=== PATIENT | female | born 1925 | race Caucasian/White ===

== ENCOUNTER 2016-11-08 12:07 | Emergency (ER) | payer OTHER ==
[~2016-11-08] VITALS: Ht 160 cm; Wt 53.6 kg
[~2016-11-08 12:07] MED LIST: ADVAIR; ADVAIR 250-501 EACH IH; ADVAIR 250/501 DISK IH; ADVAIR HFA120 INHALA IH; ASPIR 8181 M1 PO; CAL-CITRATE PL1 EACH PO; CALCIUM CARB1 TABLET PO; CARDIZEM CD,CA180 MG PO; CARDIZEM CD120 MG PO; CEFTIN500 MG PO; CLINDAMYCIN HC150 MG PO; CRESTOR20 MG; CRESTOR20 MG PO; Cardizem CD,Cartia X PO; Ceftin PO; DELTASONE5 MG PO; DIGOXIN125 MCG PO; DILTIAZEM 24HR180 MG PO; DILTIAZEM 24HR240 MG PO; FERROUS SULFAT325 MG PO; FUROSEMIDE20 MG PO; IRON325 MG PO; K-DUR20 MEQ PO; KLOR-CON M2020 MEQ PO; LEVAQUIN500 MG PO; LEVOFLOXACIN750 MG PO; LEVOTHROID,SYN0.1 MG PO; LEVOTHYROXINE75 MCG PO; LIDOCAINE700 MG TD; LOPRESSOR50 MG PO; LYRICA75 MG PO; Levothroid,Synthroid PO; MEDROL DOSEPAK4 MG PO; MOUTHWASH PO; Medrol Dosepak PO; NYSTATIN100000 UN1 PO; OMEPRAZOLE40 M1 PO; PRADAXA150 MG PO; PRADAXA75 MG; PRADAXA75 MG PO; PREDNISOLONE5 MG PO; PREDNISONE PO; PREDNISONE1 MG PO; PREDNISONE10 MG PO; PREDNISONE20 MG PO; PREDNISONE5 M2 PO; PREDNISONE5 MG PO; PRILOSEC40 MG PO; PROAIR HFA8.5 GM; PROAIR HFA8.5 GM IH; PROVENTIL,2.5 MG/0.5 IH; Pradaxa PO; PriLOSEC PO; RANITIDINE HCL150 M1 PO; RAYOS2 MG PO; RECLAST 55 MG/100 M IV; RECLAST5 MG/100 M IV; SENNA-TIME S T1 EACH PO; SERTRALINE HCL100 MG; SERTRALINE HCL100 MG PO; SPIRIVA1 INHALATI IH; SYNTHROID100 MCG PO; SYNTHROID75 MCG PO; TYLENOL/CODE1 TABLE1; VALACYCLOVIR1000 MG PO; VENTOLIN HFA18 GM IH; ZANTAC150 MG PO; ZETIA10 MG; ZETIA10 MG PO; ZOFRAN4 MG PO; ZOLOFT100 M1 PO; ZYRTEC10 M2 PO; ZYRTEC10 M3 PO; Zithromax PO; Zoloft PO; ZyrTEC PO; [UNRECOGNIZED DRUG - OTHER] PO; predniSONE PO
[2016-11-08 13:14] LABS: HEMATOCRIT 35.3 % (36.0-46.0); MCH 29.9 PG (29.0-34.0); MCHC 30.9 G/DL (30.0-36.0); MCV 96.7 FL (83-99); MEAN PLAT.VOLUME 10.4 uM^3 (9.5-12.4); PLATELET COUNT 161 K/uL (156-360); RBC DIS.WIDTH-CV 15.1 % (11.8-14.6); RBC DIS.WIDTH-SD 53.5 % (39-53); RED BLOOD COUNT 3.65 M/uL (3.80-5.20); WHITE BLOOD COUNT 8.9 K/uL (4.1-10.2)
[2016-11-08 13:22] LABS: CHLORIDE 109 mEq/L (99-109); POTASSIUM 3.9 mEq/L (3.7-5.4); SODIUM 141 mEq/L (136-147)
[2016-11-08 13:24] LABS: GLUCOSE 99 mg/dL (70-99); INTER. NORMALIZED RATIO 1.1; PROTHROMBIN TIME 11.7 (9.2-11.2); PTT 34.5 (25-32)
[2016-11-08 13:25] LABS: ANION GAP 9 MEQ/L (2-14)
[2016-11-08 13:28] LABS: GFR ESTIMATE (CALCULATED) 45 mL/min/
[2016-11-08 13:29] LABS: UREA NITROGEN (BUN) 29 mg/dL (9-23)
[2016-11-08 16:41] VITALS: BP 138/53
== END 2016-11-08 16:42 | disposition home or self-care (01) ==
LOC: EME 12:07
PROVIDERS: Emergency Medicine
PROC: 0HQEXZZ Repair Left Lower Arm Skin, External Approach (ICD-10-PCS; principal; 2016-11-08)
DX: S51.812A Laceration without foreign body of left forearm, initial encounter (principal); W18.30XA Fall on same level, unspecified, initial encounter; K21.9 Gastro-esophageal reflux disease without esophagitis; J44.9 Chronic obstructive pulmonary disease, unspecified; Z86.73 Personal history of transient ischemic attack (TIA), and cerebral infarction without residual deficits; Z87.891 Personal history of nicotine dependence
CPT/HCPCS: 70450; 73090; 73110; 80048; 85027; 85610; 85730; 93005; 99281; 99285

== ENCOUNTER 2016-11-26 04:52 | Emergency (ER) | payer OTHER ==
[~2016-11-26] VITALS: Ht 157.5 cm; Wt 46.7 kg
[2016-11-26 05:27] LABS: CHLORIDE 106 mEq/L (99-109); POTASSIUM 4.8 mEq/L (3.7-5.4); SODIUM 139 mEq/L (136-147)
[2016-11-26 05:29] LABS: GLUCOSE 109 mg/dL (70-99)
[2016-11-26 05:30] LABS: ANION GAP 10 MEQ/L (2-14)
[2016-11-26 05:32] LABS: GFR ESTIMATE (CALCULATED) 41 mL/min/; SERUM ETHYL ALCOHOL < 10 mg/dL
[2016-11-26 05:33] LABS: UREA NITROGEN (BUN) 34 mg/dL (9-23)
[2016-11-26 05:35] LABS: LIPASE 47 U/L (1.0-51.0)
[2016-11-26 05:36] LABS: BASOPHIL COUNT 0.1 K/uL (0-0.1); EOSINOPHIL (%) 2.6 % (0-5); EOSINOPHIL COUNT 0.2 K/uL (0-0.3); HEMATOCRIT 35.2 % (36.0-46.0); IMMATURE GRANULOCYTE (%) 0.7 % (0.0-0.7); IMMATURE GRANULOCYTE COUNT 0.1 K/uL; INSTRUMENT ABS NEUTROPHIL CT 6.9 K/uL; LYMPHOCYTE COUNT 0.6 K/uL (1.0-2.8); MCH 29.8 PG (29.0-34.0); MCV 96.2 FL (83-99); MEAN PLAT.VOLUME 10.1 uM^3 (9.5-12.4); MONOCYTE COUNT 0.7 K/uL (0-0.8); NEUTROPHIL (%) 81.5 % (45-76); NEUTROPHIL COUNT 6.9 K/uL (1.8-6.4); PLATELET COUNT 176 K/uL (156-360); RBC DIS.WIDTH-CV 15.1 % (11.8-14.6); RBC DIS.WIDTH-SD 53.3 % (39-53); RED BLOOD COUNT 3.66 M/uL (3.80-5.20); WHITE BLOOD COUNT 8.5 K/uL (4.1-10.2)
[2016-11-26 05:41] LABS: DIGOXIN 0.7 ng/mL (0.8-2.0)
[2016-11-26] MEDS ORDERED: PERCOCET 5/31 TABLET PO (05:59)
[2016-11-26 06:30] VITALS: BP 145/82
== END 2016-11-26 06:30 | disposition home or self-care (01) ==
LOC: EME → EDBD 04:52 → EME 04:52
PROVIDERS: Emergency Medicine
DX: S70.01XA Contusion of right hip, initial encounter (principal); W01.0XXA Fall on same level from slipping, tripping and stumbling without subsequent striking against object, initial encounter; I10 Essential (primary) hypertension; M54.5 Low back pain; J44.9 Chronic obstructive pulmonary disease, unspecified; J45.909 Unspecified asthma, uncomplicated; Z79.52 Long term (current) use of systemic steroids; Z79.82 Long term (current) use of aspirin; Z87.891 Personal history of nicotine dependence
CPT/HCPCS: 70450; 72110; 72220; 73502; 80048; 80162; 81003; 83690; 85025; 86900; 86901; 99281; 99284; G0480

== ENCOUNTER 2017-06-26 14:42 | Inpatient (IN) | payer OTHER ==
[~2017-06-26] VITALS: Ht 160 cm; Wt 103.1 kg
[~2017-06-26 14:42] MED LIST changes: +PERCOCET 5/31 TABLET PO
[2017-06-26 15:32] LABS: HEMATOCRIT 31.4 % (36.0-46.0); HEMOGLOBIN 10.1 G/DL (11.9-15.5); MCH 30.4 PG (29.0-34.0); MCHC 32.2 G/DL (30.0-36.0); MCV 94.6 FL (83-99); PLATELET COUNT 134 K/uL (156-360); RBC DIS.WIDTH-CV 13.4 % (11.8-14.6); RBC DIS.WIDTH-SD 46.8 % (39-53); RED BLOOD COUNT 3.32 M/uL (3.80-5.20); WHITE BLOOD COUNT 21.6 K/uL (4.1-10.2)
[2017-06-26 15:41] LABS: ALBUMIN 3.1 g/dL (3.2-4.8); CHLORIDE 100 mEq/L (99-109); POTASSIUM 3.8 mEq/L (3.7-5.4); SODIUM 132 mEq/L (136-147)
[2017-06-26 15:43] LABS: MAGNESIUM 1.2 mg/dL (1.3-2.7)
[2017-06-26 15:44] LABS: GLUCOSE 149 mg/dL (70-99); TOTAL PROTEIN 6.5 g/dL (6.4-8.3)
[2017-06-26 15:46] LABS: TOTAL BILIRUBIN 0.9 mg/dL (0.0-1.0)
[2017-06-26 15:47] LABS: ALKALINE PHOSPHATASE 57 IU/L (3-129)
[2017-06-26 15:48] LABS: CREATININE 1.8 mg/dL (0.6-1.3); GFR ESTIMATE (CALCULATED) 28 mL/min/
[2017-06-26 15:49] LABS: AST (GOT) 25 IU/L (2-34); UREA NITROGEN (BUN) 38 mg/dL (9-23)
[2017-06-26 15:50] LABS: ALT (GPT) 11 IU/L (3-49)
[2017-06-26 15:54] LABS: TROP-I INTERPRETATION POSITIVE
[2017-06-26 15:58] LABS: TROPONIN-I 0.77 ng/mL (0.0-0.30)
[2017-06-26 16:14] LABS: APPEARANCE SL.HAZY ((CLEAR)); BILIRUBIN NEGATIVE; BLOOD MODERATE; COLOR YELLOW ((YELLOW)); GLUCOSE (STRIP) NEGATIVE; KETONES NEGATIVE; LEUKOCYTES NEGATIVE; NITRITE NEGATIVE; PROTEIN (STRIP) 30; SPECIFIC GRAVITY 1.013 (1.000-1.030)
[2017-06-26 16:21] LABS: BACTERIA RARE /HPF; EPITHELIAL CELLS RARE /HPF; HYALINE CASTS 0-5 /LPF; MUCUS NONE SEEN /LPF; RED BLOOD CELLS 0-5 /HPF (0-5); UCUL ADDED? NO; WHITE BLOOD CELLS 0-5 /HPF (0-5)
[2017-06-26] MEDS ORDERED: ERGOCALCIF50000 UNIT PO (16:51)
[2017-06-26] MEDS ORDERED: DIGOXIN125 MCG PO (16:52)
[2017-06-26] MEDS ORDERED: OMEPRAZOLE40 M1 PO (16:52)
[2017-06-26 17:00] LABS: ABS NEUTROPHIL COUNT 21.1; ANISOCYTOSIS 1+; ATYPICAL LYMPHOCYTE 0.4 %; BAND NEUTROPHILS 17.3 % (0-8.0); EOSINOPHIL ABS CT 0; HEMATOLOGY COMMENT 1 SN; MONOCYTES 1.7 % (0-9.0); OVALOCYTES 1+; PLAT.SUFFICIENCY DECREASED; POIKILOCYTOSIS 1+; POLYCHROMASIA 1+; SEG.NEUTROPHILS 80.6 % (46.0-76.0); TOXIC GRANULATION 1+
[2017-06-26 17:15] LABS: THYROTROPIN (TSH) 1.6 MIU/L (0.4-5.5)
[2017-06-26 17:17] LABS: C DIFF TOXIN NEGATIVE (NEGATIVE)
[2017-06-26 21:30] VITALS: BP 99/51
[2017-06-26 23:44] VITALS: BP 99/50
[2017-06-27 02:06] LABS: HEMATOCRIT 27.2 % (36.0-46.0); HEMOGLOBIN 8.8 G/DL (11.9-15.5); MCH 30.7 PG (29.0-34.0); MCHC 32.4 G/DL (30.0-36.0); MCV 94.8 FL (83-99); PLATELET COUNT 112 K/uL (156-360); RBC DIS.WIDTH-CV 13.7 % (11.8-14.6); RBC DIS.WIDTH-SD 47.6 % (39-53); RED BLOOD COUNT 2.87 M/uL (3.80-5.20); WHITE BLOOD COUNT 19.2 K/uL (4.1-10.2)
[2017-06-27 02:12] LABS: CHLORIDE 106 mEq/L (99-109); POTASSIUM 3.8 mEq/L (3.7-5.4); SODIUM 136 mEq/L (136-147)
[2017-06-27 02:15] LABS: ALBUMIN 2.6 g/dL (3.2-4.8)
[2017-06-27 02:18] LABS: GLUCOSE 125 mg/dL (70-99); TOTAL PROTEIN 4.9 g/dL (6.4-8.3)
[2017-06-27 02:21] LABS: ALKALINE PHOSPHATASE 60 IU/L (3-129); CREATININE 1.7 mg/dL (0.6-1.3); GFR ESTIMATE (CALCULATED) 30 mL/min/
[2017-06-27 02:22] LABS: UREA NITROGEN (BUN) 40 mg/dL (9-23)
[2017-06-27 02:24] LABS: ALT (GPT) 16 IU/L (3-49)
[2017-06-27 02:25] LABS: AST (GOT) 39 IU/L (2-34); TOTAL BILIRUBIN 0.7 mg/dL (0.0-1.0)
[2017-06-27 02:44] LABS: TROP-I INTERPRETATION POSITIVE
[2017-06-27 02:48] LABS: TROPONIN-I 0.97 ng/mL (0.0-0.30)
[2017-06-27 04:59] VITALS: BP 96/54
[2017-06-27 07:30] VITALS: BP 104/56
[2017-06-27 11:46] VITALS: BP 91/52
[2017-06-27 15:55] VITALS: BP 114/53
[2017-06-27 20:08] VITALS: BP 121/58
[2017-06-28] VITALS (7 sets, daily range): BP systolic 120–159; BP diastolic 62–77
[2017-06-28 05:47] LABS: HEMATOCRIT 27.3 % (36.0-46.0); HEMOGLOBIN 8.6 G/DL (11.9-15.5); MCH 29.5 PG (29.0-34.0); MCHC 31.5 G/DL (30.0-36.0); MCV 93.5 FL (83-99); PLATELET COUNT 124 K/uL (156-360); RBC DIS.WIDTH-CV 13.5 % (11.8-14.6); RBC DIS.WIDTH-SD 46.5 % (39-53); RED BLOOD COUNT 2.92 M/uL (3.80-5.20); WHITE BLOOD COUNT 8.6 K/uL (4.1-10.2)
[2017-06-28 06:13] LABS: ALBUMIN 2.9 G/DL (3.2-4.8); ALKALINE PHOSPHATASE 67 IU/L (3-129); ALT (GPT) 13 IU/L (3-49); AST (GOT) 20 IU/L (2-34); CHLORIDE 109 MEQ/L (99-109); CREATININE 1.6 MG/DL (0.6-1.3); GFR ESTIMATE (CALCULATED) 32 mL/min/; GLUCOSE 143 mg/dL (70-99); POTASSIUM 3.8 MEQ/L (3.7-5.4); SODIUM 137 MEQ/L (136-147); TOTAL BILIRUBIN 0.4 MG/DL (0.0-1.0); UREA NITROGEN (BUN) 46 mg/dL (9-23)
[2017-06-29 04:45] VITALS: BP 140/68
[2017-06-29 04:56] LABS: HEMATOCRIT 27.8 % (36.0-46.0); HEMOGLOBIN 9.1 G/DL (11.9-15.5); MCH 30.6 PG (29.0-34.0); MCHC 32.7 G/DL (30.0-36.0); MCV 93.6 FL (83-99); PLATELET COUNT 133 K/uL (156-360); RBC DIS.WIDTH-SD 48.2 % (39-53); RED BLOOD COUNT 2.97 M/uL (3.80-5.20); WHITE BLOOD COUNT 7.4 K/uL (4.1-10.2)
[2017-06-29 07:37] VITALS: BP 157/68
[2017-06-29 11:18] LABS: CHLORIDE 107 MEQ/L (99-109); CREATININE 1.7 MG/DL (0.6-1.3); GFR ESTIMATE (CALCULATED) 30 mL/min/; GLUCOSE 153 mg/dL (70-99); POTASSIUM 3.9 MEQ/L (3.7-5.4); SODIUM 137 MEQ/L (136-147); UREA NITROGEN (BUN) 51 mg/dL (9-23)
[2017-06-29 12:08] VITALS: BP 154/66
[2017-06-29 19:16] VITALS: BP 159/79
[2017-06-29 22:28] VITALS: BP 143/77
[2017-06-30 04:21] VITALS: BP 154/82
[2017-06-30 08:00] VITALS: BP 143/72
[2017-06-30 11:23] VITALS: BP 147/81
[2017-06-30] MEDS ORDERED: CEFTIN250 MG PO (12:27)
[2017-06-30] MEDS ORDERED: PREDNISONE10 MG PO (12:28)
[2017-06-30] MEDS ORDERED: LOPRESSOR25 MG PO (12:28)
[2017-06-30 15:31] VITALS: BP 122/81
[2017-06-30 20:41] VITALS: BP 143/74
[2017-06-30 23:55] VITALS: BP 142/72
[2017-07-01 03:39] VITALS: BP 150/67
[2017-07-01 09:25] VITALS: BP 142/59
== END 2017-07-01 13:23 | DRG 871 ==
LOC: EME 14:42 → EDOF 16:51 → 4EAST 16:51 → ENRESERV 16:52 → CANRESERV 17:19 → ENRESERV 18:05 → 4EAST 21:11
PROVIDERS: Emergency Medicine; Hospitalist; Physician Assistant
DX: A41.9 Sepsis, unspecified organism (principal); R65.21 Severe sepsis with septic shock; J18.9 Pneumonia, unspecified organism; J44.0 Chronic obstructive pulmonary disease with (acute) lower respiratory infection; N17.9 Acute kidney failure, unspecified; J44.1 Chronic obstructive pulmonary disease with (acute) exacerbation; I13.0 Hypertensive heart and chronic kidney disease with heart failure and stage 1 through stage 4 chronic kidney disease, or unspecified chronic kidney disease; I50.9 Heart failure, unspecified; N18.9 Chronic kidney disease, unspecified; I08.1 Rheumatic disorders of both mitral and tricuspid valves; S22.42XA Multiple fractures of ribs, left side, initial encounter for closed fracture; W19.XXXA Unspecified fall, initial encounter; Y92.009 Unspecified place in unspecified non-institutional (private) residence as the place of occurrence of the external cause; Z60.2 Problems related to living alone; I27.20 Pulmonary hypertension, unspecified; I24.8 Other forms of acute ischemic heart disease; I48.2 Chronic atrial fibrillation; Z66 Do not resuscitate; R19.7 Diarrhea, unspecified; E78.5 Hyperlipidemia, unspecified; E03.9 Hypothyroidism, unspecified; M35.3 Polymyalgia rheumatica; K21.9 Gastro-esophageal reflux disease without esophagitis; D64.9 Anemia, unspecified; M19.90 Unspecified osteoarthritis, unspecified site; Z86.73 Personal history of transient ischemic attack (TIA), and cerebral infarction without residual deficits; Z87.891 Personal history of nicotine dependence; Z91.81 History of falling; Z79.52 Long term (current) use of systemic steroids; Z79.82 Long term (current) use of aspirin; Z90.710 Acquired absence of both cervix and uterus; Z82.49 Family history of ischemic heart disease and other diseases of the circulatory system; Z80.9 Family history of malignant neoplasm, unspecified
CPT/HCPCS: 71010; 80048; 80053; 81003; 83605; 83630; 83735; 83880; 84443; 84484; 85025; 85027; 87040; 87493; 87502; 87506; 87641; 93005; 94640; 94640 76; 97530 GO; 97530 GP; 99281; 99285; J0456; J0696; J1644; J2405; J2930; J7030; J7512

== ENCOUNTER 2017-08-24 21:22 | Emergency (ER) | payer OTHER ==
[~2017-08-24] VITALS: Ht 152.4 cm; Wt 46.4 kg
[~2017-08-24 21:22] MED LIST changes: +CEFTIN250 MG PO; +ERGOCALCIF50000 UNIT PO; +LOPRESSOR25 MG PO
[2017-08-24 22:09] LABS: BASOPHIL (%) 0.3 % (0-1); EOSINOPHIL (%) 2.1 % (0-5); EOSINOPHIL COUNT 0.2 K/uL (0-0.3); HEMATOCRIT 34.7 % (36.0-46.0); HEMOGLOBIN 11.3 G/DL (11.9-15.5); IMMATURE GRANULOCYTE (%) 0.4 % (0.0-0.7); LYMPHOCYTE (%) 9.7 % (15-42); LYMPHOCYTE COUNT 0.8 K/uL (1.0-2.8); MCH 29.6 PG (29.0-34.0); MCHC 32.6 G/DL (30.0-36.0); MCV 90.8 FL (83-99); MONOCYTE (%) 8.5 % (3-12); MONOCYTE COUNT 0.7 K/uL (0-0.8); NEUTROPHIL COUNT 6.2 K/uL (1.8-6.4); PLATELET COUNT 130 K/uL (156-360); RBC DIS.WIDTH-CV 14.4 % (11.8-14.6); RBC DIS.WIDTH-SD 47.9 % (39-53); RED BLOOD COUNT 3.82 M/uL (3.80-5.20); WHITE BLOOD COUNT 7.8 K/uL (4.1-10.2)
[2017-08-24 22:27] LABS: CHLORIDE 105 mEq/L (99-109); POTASSIUM 3.5 mEq/L (3.7-5.4); SODIUM 136 mEq/L (136-147)
[2017-08-24 22:29] LABS: GLUCOSE 104 mg/dL (70-99)
[2017-08-24 22:32] LABS: CREATININE 1.7 mg/dL (0.6-1.3); GFR ESTIMATE (CALCULATED) 30 mL/min/
[2017-08-24 22:33] LABS: UREA NITROGEN (BUN) 32 mg/dL (9-23)
[2017-08-25] MEDS ORDERED: LEVAQUIN750 MG PO (00:07)
[2017-08-25 00:28] VITALS: BP 133/64
== END 2017-08-25 00:29 | disposition home or self-care (01) ==
LOC: EME 21:22
DX: J44.1 Chronic obstructive pulmonary disease with (acute) exacerbation (principal); K21.9 Gastro-esophageal reflux disease without esophagitis; I10 Essential (primary) hypertension; F41.9 Anxiety disorder, unspecified; F32.9 Major depressive disorder, single episode, unspecified; Z87.891 Personal history of nicotine dependence; Z86.73 Personal history of transient ischemic attack (TIA), and cerebral infarction without residual deficits; Z79.82 Long term (current) use of aspirin; Z88.0 Allergy status to penicillin; Z88.8 Allergy status to other drugs, medicaments and biological substances
CPT/HCPCS: 71046; 80048; 85025; 85610; 85730; 99281; 99284; J1100

== ENCOUNTER 2017-09-03 19:16 | Inpatient (IN) | payer OTHER ==
[~2017-09-03] VITALS: Ht 157.5 cm; Wt 45.5 kg
[~2017-09-03 19:16] MED LIST changes: +LEVAQUIN750 MG PO
[2017-09-03 20:02] LABS: HEMOGLOBIN 11.6 G/DL (11.9-15.5); MCH 30.3 PG (29.0-34.0); MCHC 33.1 G/DL (30.0-36.0); MCV 91.4 FL (83-99); PLATELET COUNT 151 K/uL (156-360); RBC DIS.WIDTH-CV 14.4 % (11.8-14.6); RBC DIS.WIDTH-SD 48.4 % (39-53); RED BLOOD COUNT 3.83 M/uL (3.80-5.20); WHITE BLOOD COUNT 14.3 K/uL (4.1-10.2)
[2017-09-03 20:12] LABS: CHLORIDE 106 mEq/L (99-109); POTASSIUM 3.8 mEq/L (3.7-5.4); SODIUM 138 mEq/L (136-147)
[2017-09-03 20:13] LABS: GLUCOSE 141 mg/dL (70-99)
[2017-09-03 20:17] LABS: CREATININE 1.8 mg/dL (0.6-1.3); GFR ESTIMATE (CALCULATED) 28 mL/min/
[2017-09-03 20:18] LABS: UREA NITROGEN (BUN) 32 mg/dL (9-23)
[2017-09-03] MEDS ORDERED: DIGITEK125 MC2 PO (21:21)
[2017-09-03] MEDS ORDERED: LASIX20 MG PO (21:23)
[2017-09-03] MEDS ORDERED: PROLIA60 MG/1 ML SC (21:25)
[2017-09-03 21:48] LABS: APPEARANCE SL.HAZY ((CLEAR)); BILIRUBIN NEGATIVE; BLOOD NEGATIVE; COLOR YELLOW ((YELLOW)); GLUCOSE (STRIP) NEGATIVE; KETONES NEGATIVE; LEUKOCYTES MODERATE; NITRITE NEGATIVE; PROTEIN (STRIP) 30; SPECIFIC GRAVITY 1.017 (1.000-1.030); UROBILINOGEN 0.2 MG/DL (0.2-1.0)
[2017-09-03 21:51] LABS: BACTERIA RARE /HPF; EPITHELIAL CELLS 2+ /HPF; MUCUS TRACE /LPF; UCUL ADDED? YES; WHITE BLOOD CELLS 20-30 /HPF (0-5)
[2017-09-03] MEDS ORDERED: ZOLOFT50 MG PO (22:53)
[2017-09-03] MEDS ORDERED: PROAIR HFA8.5 GM IH (22:53)
[2017-09-03] MEDS ORDERED: ADVIL200 MG PO (22:54)
[2017-09-03] MEDS ORDERED: ZYRTEC10 M3 PO (22:55)
[2017-09-03] MEDS ORDERED: VOLTAREN 1% GE100 GM TP (22:55)
[2017-09-03 23:13] LABS: INTER. NORMALIZED RATIO 1.3
[2017-09-03 23:15] LABS: PTT 27.8 SEC (25-37)
[2017-09-03 23:24] LABS: TOTAL PROTEIN 5.4 g/dL (6.4-8.3)
[2017-09-03 23:25] LABS: TOTAL BILIRUBIN 0.6 mg/dL (0.0-1.0)
[2017-09-03 23:27] LABS: ALKALINE PHOSPHATASE 52 IU/L (3-129)
[2017-09-03 23:29] LABS: AST (GOT) 12 IU/L (2-34); DIRECT BILIRUBIN 0.3 mg/dL (0.0-0.3); TROP-I INTERPRETATION NEGATIVE; TROPONIN-I 0.06 ng/mL (0.0-0.30)
[2017-09-03 23:30] LABS: ALT (GPT) 4 IU/L (3-49)
[2017-09-03 23:35] LABS: DIGOXIN 1.2 ng/mL (0.8-2.0)
[2017-09-04] VITALS (8 sets, daily range): BP systolic 97–133; BP diastolic 48–61
[2017-09-04 08:23] LABS: HEMATOCRIT 32.7 % (36.0-46.0); HEMOGLOBIN 10.6 G/DL (11.9-15.5); MCH 30.5 PG (29.0-34.0); MCHC 32.4 G/DL (30.0-36.0); PLATELET COUNT 130 K/uL (156-360); RBC DIS.WIDTH-CV 14.5 % (11.8-14.6); RBC DIS.WIDTH-SD 50.4 % (39-53); RED BLOOD COUNT 3.48 M/uL (3.80-5.20); WHITE BLOOD COUNT 11.6 K/uL (4.1-10.2)
[2017-09-04 08:48] LABS: CHLORIDE 113 MEQ/L (99-109); CREATININE 1.6 MG/DL (0.6-1.3); GFR ESTIMATE (CALCULATED) 32 mL/min/; POTASSIUM 3.9 MEQ/L (3.7-5.4); SODIUM 143 MEQ/L (136-147); UREA NITROGEN (BUN) 27 mg/dL (9-23)
[2017-09-04 08:49] LABS: GLUCOSE 96 mg/dL (70-99)
[2017-09-05 03:22] VITALS: BP 105/73
[2017-09-05 06:19] LABS: BASOPHIL (%) 0.5 % (0-1); BASOPHIL COUNT 0.1 K/uL (0-0.1); EOSINOPHIL (%) 1.6 % (0-5); EOSINOPHIL COUNT 0.2 K/uL (0-0.3); HEMATOCRIT 28.1 % (36.0-46.0); IMMATURE GRANULOCYTE (%) 1.2 % (0.0-0.7); LYMPHOCYTE (%) 3.3 % (15-42); LYMPHOCYTE COUNT 0.3 K/uL (1.0-2.8); MCH 30.1 PG (29.0-34.0); MONOCYTE COUNT 0.5 K/uL (0-0.8); NEUTROPHIL (%) 88.4 % (45-76); PLATELET COUNT 106 K/uL (156-360); RBC DIS.WIDTH-CV 14.6 % (11.8-14.6); RBC DIS.WIDTH-SD 50.5 % (39-53); RED BLOOD COUNT 2.99 M/uL (3.80-5.20); WHITE BLOOD COUNT 10.1 K/uL (4.1-10.2)
[2017-09-05 06:44] LABS: CHLORIDE 114 MEQ/L (99-109); CREATININE 1.3 MG/DL (0.6-1.3); GFR ESTIMATE (CALCULATED) 41 mL/min/; GLUCOSE 122 mg/dL (70-99); POTASSIUM 4.5 MEQ/L (3.7-5.4); SODIUM 142 MEQ/L (136-147); UREA NITROGEN (BUN) 21 mg/dL (9-23)
[2017-09-05 07:16] VITALS: BP 102/51
[2017-09-05 11:26] VITALS: BP 107/53
[2017-09-05 15:21] VITALS: BP 108/59
[2017-09-05 20:20] VITALS: BP 124/57
[2017-09-05 23:55] VITALS: BP 98/54
[2017-09-06 04:10] VITALS: BP 113/58
[2017-09-06 06:58] LABS: HEMATOCRIT 28.6 % (36.0-46.0); HEMOGLOBIN 8.9 G/DL (11.9-15.5); MCH 29.3 PG (29.0-34.0); MCHC 31.1 G/DL (30.0-36.0); MCV 94.1 FL (83-99); PLATELET COUNT 112 K/uL (156-360); RBC DIS.WIDTH-CV 14.6 % (11.8-14.6); RBC DIS.WIDTH-SD 50.8 % (39-53); RED BLOOD COUNT 3.04 M/uL (3.80-5.20); WHITE BLOOD COUNT 9.7 K/uL (4.1-10.2)
[2017-09-06 07:13] VITALS: BP 122/58
[2017-09-06 07:29] LABS: CHLORIDE 112 MEQ/L (99-109); CREATININE 1.4 MG/DL (0.6-1.3); GFR ESTIMATE (CALCULATED) 38 mL/min/; POTASSIUM 3.9 MEQ/L (3.7-5.4); SODIUM 142 MEQ/L (136-147); UREA NITROGEN (BUN) 28 mg/dL (9-23)
[2017-09-06 07:32] LABS: GLUCOSE 91 mg/dL (70-99)
[2017-09-06 11:41] VITALS: BP 96/49
[2017-09-06] MEDS ORDERED: BACTRIM,SEPT1 TABLET PO (12:26)
[2017-09-06] MEDS ORDERED: TRAMADOL HCL50 MG PO (12:37)
[2017-09-06] MEDS ORDERED: LIDOCAINE700 MG TP (12:37)
[2017-09-06] MEDS ORDERED: BACTRIM,SEPT1 TABLE1 PO (12:50)
== END 2017-09-06 14:51 | disposition home health service (06) | DRG 690 ==
LOC: EME 19:16 → 2EAST 23:39 → EDOF 23:39 → ENRESERV 09-04 00:01 → 2EAST 09-04 01:28
PROVIDERS: Emergency Medicine; Hospitalist; Internal Medicine
DX: N39.0 Urinary tract infection, site not specified (principal); N17.9 Acute kidney failure, unspecified; E86.0 Dehydration; I48.91 Unspecified atrial fibrillation; M35.3 Polymyalgia rheumatica; I05.9 Rheumatic mitral valve disease, unspecified; J44.9 Chronic obstructive pulmonary disease, unspecified; R63.4 Abnormal weight loss; Z68.1 Body mass index [BMI] 19.9 or less, adult; M47.812 Spondylosis without myelopathy or radiculopathy, cervical region; E03.9 Hypothyroidism, unspecified; E78.5 Hyperlipidemia, unspecified; I10 Essential (primary) hypertension; K21.9 Gastro-esophageal reflux disease without esophagitis; D64.9 Anemia, unspecified; F32.9 Major depressive disorder, single episode, unspecified; F41.9 Anxiety disorder, unspecified; Z80.9 Family history of malignant neoplasm, unspecified; Z82.49 Family history of ischemic heart disease and other diseases of the circulatory system; Z86.73 Personal history of transient ischemic attack (TIA), and cerebral infarction without residual deficits; Z87.440 Personal history of urinary (tract) infections; Z87.891 Personal history of nicotine dependence; Z91.81 History of falling
CPT/HCPCS: 71046; 72040; 80048; 80076; 80162; 81003; 83605; 84484; 85025; 85027; 85610; 85730; 87040; 87086; 93005; 94640; 94640 76; 99281; 99285; J0696; J1644; J7030; J7040; J7512